=== PATIENT | female | born 1970 | race Caucasian/White ===

== ENCOUNTER 2016-10-18 05:04 | Inpatient (IN) | payer BC ==
[2016-09-21 11:38] VITALS: BMI 37.0
--- NOTE | 2016-09-21 12:11 | PAT Medication Instructions ---
Service Date Sep 21, 2016. Current Home Medication List Cholecalciferol (Vitamin D3), 1 TAB PO QAM Cyanocobalamin (Vitamin B12), 1 TAB PO QAM Gabapentin (Neurontin), 600 MG PO HS Levothyroxine Sodium (Levothyroxine Sodium), 1 TAB PO QAM Medroxyprogesterone Acetate (Depo-Provera), 1 DOSE INJ [id number] Naproxen (Naprosyn), 500 MG PO BID Tramadol (Ultram), 50 MG PO Q4H PRN for Pain Triamcinolone Acet (Triamcinolone Acetonide), 1 APPLN TOP BID PRN for RASH Medication Instructions For Your Scheduled Surgery - Continue as directed: Medroxyprogesterone Acetate (Depo-Provera), 1 DOSE INJ [id number] - Hold the following medications 10 days prior to surgery per surgeon's instructions: Naproxen (Naprosyn), 500 MG PO BID - Hold the following medications 24 hours prior to surgery: Triamcinolone Acet (Triamcinolone Acetonide), 1 APPLN TOP BID PRN for RASH - Hold the following medications the morning of surgery: Cholecalciferol (Vitamin D3), 1 TAB PO QAM Cyanocobalamin (Vitamin B12), 1 TAB PO QAM - Take the following medications the morning of surgery with a sip of water OTHERWISE NOTHING TO EAT OR DRINK AFTER MIDNIGHT: Levothyroxine Sodium (Levothyroxine Sodium), 1 TAB PO QAM Tramadol (Ultram), 50 MG PO Q4H PRN for Pain (may take if needed up to 4 hours prior to surgery) - Take the following medications as scheduled the night before surgery: Gabapentin (Neurontin), 600 MG PO HS Tramadol (Ultram), 50 MG PO Q4H PRN for Pain If you have any questions please call us at [phone] (Pepper Ingram PA-C) or [phone] or [phone]
[2016-09-21 12:41] LABS: BASO % 0.9 %; BASO ABS # 0.06 K/uL (0-0.2); COMPLETE YES; EOS % 5.2 %; HEMATOCRIT 41.6 % (37-47); LYMPH % 23.3 %; LYMPH ABS # 1.47 K/uL (1.2-3.4); MEAN CELL VOLUME 86.3 fL (80-100); MEAN CORPUSCULAR HEMOGLOBIN 28.2 pg (25-34); MEAN CORPUSCULAR HGB CONC 32.7 g/dl (32-36); MEAN PLATELET VOLUME 9.3 fL (7.4-10.4); MONO % 9.7 %; NEUT % 60.9 %; PLATELET COUNT 312 K/uL (130-400); RED BLOOD COUNT 4.82 M/uL (4.2-5.4); WHITE BLOOD COUNT 6.32 K/uL (4.8-10.8)
[2016-09-21 12:50] LABS: PARTIAL THROMBOPLASTIN RATIO 1.1; PROTHROMBIN TIME (PATIENT) 10.4 SECONDS (9.0-12.0)
[2016-09-21 13:44] LABS: BLOOD UREA NITROGEN 17 mg/dl (7-18); BUN/CREATININE RATIO 20.9 (10-20); CARBON DIOXIDE 25 mmol/L (21-32); CHLORIDE 107 mmol/L (98-107); CREATININE 0.82 mg/dl (0.60-1.20); GLUCOSE 87 mg/dl (70-99); SODIUM 142 mmol/L (136-145)
[2016-09-21 13:48] LABS: C-REACTIVE PROTEIN < 0.29 mg/dl (0-0.29)
--- NOTE | 2016-09-21 13:49 | DIAGNOSTIC IMAGING REPORT ---
CHEST PREADMISSION(PA/LAT) HISTORY: Preop. COMPARISON: None. FINDINGS: The lungs are clear. Cardiac silhouette is normal in size. No pleural effusions. No pneumothorax. IMPRESSION: No acute process. Electronically signed by: Power Gallagher M.D. 09/21/2016 1:47 PM
--- NOTE | 2016-10-13 22:52 | HISTORY & PHYSICAL EXAMINATION ---
DATE OF ADMISSION: 10/18/2016 CHIEF COMPLAINT: Right hip pain. HISTORY OF PRESENT ILLNESS: The patient is a 46-year-old female who works for [employer] but currently on medical leave due to multiple joint aches and pains. She has a history of parvovirus in the past back in December and started developing lot of aches and pains in her joints. Since then, her right hip has gotten significantly worse. She describes groin pain. She has taken multiple different medicines to try and manage this. She has been on gabapentin, tramadol, Naprosyn, all of which take a little edge off it and that is about it. She limps with every step. She limps more and more as the day goes on. She also has had some knee pain that has been bothering her for about the past 6 months. She has been seen by infectious disease doctors but really not much management as she has had this virus. Her walking tolerance is limited. Right hip pain is worse than the knee pain. PAST MEDICAL HISTORY: Significant for: 1. Thyroid enlargement, status post thyroidectomy and now on Synthroid. 2. Obesity with a BMI of 37. PAST SURGICAL HISTORY: Includes thyroid surgery. ALLERGIES: None. CURRENT MEDICINES: 1. Gabapentin 600 mg at bedtime. 2. Tramadol 50 mg every 4 hours. 3. Naproxen 500 mg twice a day. 4. Synthroid 88 mcg in the morning. 5. Depo-Provera 400 mg every 11 weeks. 6. Triamcinolone external cream for rash. 7. Vitamin B12. 8. Vitamin D3. SOCIAL HISTORY: A 46-year-old female patient, . She works at [employer] but currently on medical leave. REVIEW OF SYSTEMS: Negative for diabetes. Denies any chest pain, no shortness of breath. No history of DVT or PE. PHYSICAL EXAMINATION: GENERAL: Reveals a pleasant middle-aged female. She looks to be in reasonably good health. HEENT: Benign. NECK: Supple. No lymphadenopathy. LUNGS: Clear to auscultation. HEART: Regular rate and rhythm. ABDOMEN: Soft, nontender, nondistended. EXTREMITIES: Grossly neurovascularly intact except as follows: Examination of the right hip and leg reveals the patient walks with a slight bit of a limp. Leg lengths clinically appear equal. She does have quite a bit of stiffness and pain with hip motion, particularly internal rotation to neutral. External rotation to 25 degrees. Negative straight leg raise. Examination of her knees reveals slight valgus alignment. No significant knee effusion. Range of motion 0-125 plus. X-RAYS: X-rays of the right hip were reviewed. The patient has advanced right hip DJD. She has complete loss of her superior joint space. Cystic changes of the femoral head and acetabulum. X-rays of the knees were reviewed, showed some moderate knee DJD. Left side worse than the right. ASSESSMENT: A 46-year-old female with a history of parvovirus with multiple musculoskeletal aches and pains consistent with: 1. Advanced right hip degenerative joint disease. 2. Moderate bilateral knee degenerative joint disease. I do think her hip is the most severe and limiting problem at this point. PLAN: We talked about treatment. She would like to have her hip replaced. We are going to take her to the operating room and do right total hip replacement. The risks and benefits of this procedure were explained to the patient including but not limited to DVT, PE, , infection, neurologic injury, vascular injury, bleeding problem, pain, limited range of motion, stiffness, failure to relieve her symptoms, incomplete relief of symptoms, need for further surgery in the future, fracture, leg length inequality, nerve palsy, need for blood transfusion and need for revision surgery. The patient understands and desires to proceed. Informed consent was obtained. The patient did have a preoperative workup. Chest x-ray showed no acute disease. EKG is normal. We did some lab work and her sed rate and C-reactive protein are both normal, so I do not think there is any chance she has got a bacterial infection. We did talk about holding her Naprosyn 10 days preop. I will see her back 2 weeks postop.
[~2016-10-18] VITALS: Ht 160 cm; Wt 94.8 kg
[2016-10-18] VITALS (18 sets, daily range): BP systolic 91–168; BP diastolic 61–91; PULSE 55–84; TEMP 36.4–37.1; O2SAT 95–100; Ht 160 cm; Wt 94.8 kg
[~2016-10-18 05:04] MED LIST: CHOL1000 PO; CYAN100020 PO; DPPI400 INJ; GABA-113 PO; LEVO88TA3 PO; NAPR-1169 PO; TRAM-10 PO; TRMO115 TOP
[2016-10-18] MEDS ORDERED: CEFAZOLIN 2000 MG/60 ML D5W 60 ML IV SCH (06:00)
[2016-10-18] MEDS ORDERED: ACETAMINOPHEN 500 MG TAB PO SCH (06:00)
[2016-10-18] MEDS ORDERED: LACTATED RINGER'S 500 ML IV SCH (06:00)
[2016-10-18] MEDS ORDERED: METOCLOPRAMIDE HCL 10 MG TAB PO SCH (06:00)
[2016-10-18] MEDS ORDERED: TRANEXAMIC ACID INJ 1,000 MG in SODIUM CHLORIDE 0.9% 100ML 100 ML IV SCH (06:00)
[2016-10-18] MEDS ORDERED: FAMOTIDINE 20 MG TAB PO SCH (06:00)
[2016-10-18] MEDS ORDERED: GABAPENTIN 300 MG CAP PO SCH (06:00)
[2016-10-18] MEDS ORDERED: LACTATED RINGER'S 1000ML IV SCH (06:00)
[2016-10-18] MEDS ORDERED: LACTATED RINGER'S 1000ML 1,000 ML IV SCH (06:00)
[2016-10-18] MEDS ORDERED: SCOPOLAMINE 1.5 MG TDSY TD SCH (06:00)
[2016-10-18] MEDS ORDERED: MIDAZOLAM HCL 1 MG/ML 2ML VIAL ONE (06:26)
[2016-10-18] MEDS ORDERED: FENTANYL CITRATE INJ 50 MCG/1 ML 2 ML VIAL ONE (06:26)
[2016-10-18] MEDS ORDERED: BUPIVACAINE 0.5 % 5 MG/1 ML PF 10ML VIAL ONE (06:31)
[2016-10-18 06:37] LABS: PREG INTERNAL NEGATIVE QC NEG CLEAR BACKGROUND; PREG INTERNAL POSITIVE QC POS CONTROL LINE
--- NOTE | 2016-10-18 06:47 | History & Physical Bridge Note ---
H&P Re-Evaluation Bridge Note: I have examined the patient, reviewed the History & Physical and in the interval since the performance of the History & Physical I have noted the following changes of clinical significance: No changes noted
[2016-10-18] MEDS ORDERED: MoRPHine SULFATE PF 1 MG/ML 10 ML AMP/VIAL ONE (06:48)
[2016-10-18] MEDS ORDERED: LIDOCAINE HCL 2% 2 ML VIAL (20MG/ML) ONE (07:41)
[2016-10-18] MEDS ORDERED: PHENYLEPHRINE 100MCG/ML 5ML SYR ONE (07:41)
[2016-10-18] MEDS ORDERED: PROPOFOL IV EMULSION 10 MG/ML 20 ML VIAL IV ONE (07:41)
[2016-10-18] MEDS ORDERED: EpHEDrine SULFATE INJ 50 MG/ML AMP ONE (07:55)
[2016-10-18] MEDS ORDERED: NALOXONE HCL INJ 1 MG in SODIUM CHLORIDE 0.9% 1000ML 1,000 ML IV PRN (08:21)
[2016-10-18] MEDS ORDERED: SODIUM CHLORIDE 0.9% 1000ML 1,000 ML IV PRN (08:21)
[2016-10-18] MEDS ORDERED: LACTATED RINGER'S 1000ML 500 ML IV PRN (08:21)
[2016-10-18] MEDS ORDERED: NALOXONE HCL INJ 0.08 MG in SYRINGE 1.8 ML IV PRN (08:21)
[2016-10-18] MEDS ORDERED: MEPERIDINE HCL 25 MG/ML CARP IV PRN ×2 (08:30)
[2016-10-18] MEDS ORDERED: LABETALOL HCL IV 5 MG/ML 20ML IV PRN (08:30)
[2016-10-18] MEDS ORDERED: HYDROmorphone INJ 1 MG/ML SYR IV PRN (08:30)
[2016-10-18] MEDS ORDERED: KETOROLAC TROMETHAMINE 30 MG/ML VIAL IV. PRN (08:30)
[2016-10-18] MEDS ORDERED: FENTANYL CITRATE INJ 50 MCG/1 ML 2 ML VIAL IV PRN (08:30)
[2016-10-18] MEDS ORDERED: DiphenhydrAMINE HCL 50 MG/ML VIAL IV PRN ×2 (08:30)
[2016-10-18] MEDS ORDERED: EpHEDrine SULFATE INJ 50 MG/ML AMP IV PRN ×2 (08:30)
[2016-10-18] MEDS ORDERED: METOCLOPRAMIDE HCL INJ 20 MG in SODIUM CHLORIDE 0.9% 50ML 50 ML IV PRN (08:30)
[2016-10-18] MEDS ORDERED: MoRPHine SULFATE 2 MG/ML CARP IV PRN (08:30)
[2016-10-18] MEDS ORDERED: NALBUPHINE HCL INJ 10 MG/ML AMP IV PRN (08:30)
[2016-10-18] MEDS ORDERED: PROMETHAZINE HCL INJ 25 MG in SODIUM CHLORIDE 0.9% 50ML 50 ML IV PRN (08:30)
[2016-10-18] MEDS ORDERED: NO NARCOTICS OR SEDATIVES SCH (08:30)
[2016-10-18] MEDS ORDERED: MoRPHine SULFATE PF 1 MG/ML 10 ML AMP/VIAL EPI PRN (08:30)
[2016-10-18] MEDS ORDERED: ATROPINE SULFATE 0.1 MG/ML 5ML SYR IV PRN (08:30)
[2016-10-18] MEDS ORDERED: ONDANSETRON INJ 2 MG/ML 2 ML VIAL IV PRN ×3 (08:30→09:15)
[2016-10-18] MEDS ORDERED: NALOXONE HCL 0.4 MG/1 ML VIAL/CARP IV PRN (08:30)
[2016-10-18] MEDS ORDERED: BUPIVACAINE/EPINEPHRINE 0.5% MPF 1:200,000 30 ML VIAL INJ ONE (08:42)
[2016-10-18] MEDS ORDERED: BACITRACIN 50000 UNIT VIAL IR ONE (08:42)
--- NOTE | 2016-10-18 09:13 | [facility] Post Operative Brief Note ---
Immediate Operative Summary Operative Date Oct 18, 2016. Pre-Operative Diagnosis Right hip degenerative joint disease Post-Operative Diagnosis Right hip degenerative joint disease Procedure(s) Performed Right total hip arthroplasty Surgeon Dr. Domingo Parer Surgeon(s) Obie Nur PA-C Estimated Blood Loss 300CC Findings Right Hip DJD Fluids (cc crystalloids) 1200 cc Specimens A. Right femoral head Drains None Anesthesia Spinal Complication(s) None Disposition Recovery Room / PACU
[2016-10-18] MEDS ORDERED: SILVER SULFADIAZINE 1% CR 50 GM JAR EXT PRN (09:15)
[2016-10-18] MEDS ORDERED: ALUMINUM/MAGNESIUM/SIMETH (MAALOX MAX) 30 ML UDC PO PRN (09:15)
[2016-10-18] MEDS ORDERED: BISACODYL 10 MG SUPP PR PRN (09:15)
[2016-10-18] MEDS ORDERED: MAGNESIUM HYDROXIDE SUSP 30 ML UDC PO PRN (09:15)
[2016-10-18] MEDS ORDERED: TRIAMCINOLONE ACET 0.1% OINT 15 GM TUBE TOP PRN (09:15)
[2016-10-18] MEDS ORDERED: METOCLOPRAMIDE HCL INJ 5 MG/ML 2 ML VIAL IV PRN (09:15)
--- NOTE | 2016-10-18 09:59 | DIAGNOSTIC IMAGING REPORT ---
AP PELVIS, CROSSTABLE LATERAL RIGHT HIP History: Right total hip arthroplasty. Degenerative arthritis. Postop. FINDINGS: The patient is status post a right total hip arthroplasty. The hardware is intact. No fracture or dislocation. Skin betty are in place. IMPRESSION: Right total hip arthroplasty. No evidence for hardware complication Electronically signed by: Power Gallagher M.D. 10/18/2016 9:58 AM Dictated Date/Time: 10/18/2016 9:52 AM
--- NOTE | 2016-10-18 10:02 | OPERATIVE REPORT ---
DATE OF OPERATION: 10/18/2016 PREOPERATIVE DIAGNOSIS: Right hip degenerative joint disease. POSTOPERATIVE DIAGNOSIS: Same. PROCEDURE PERFORMED: Right uncemented ceramic on highly cross-linked polyethylene total hip arthroplasty. SURGEON: Chris Domingo M.D. LAB AIDE: Obie Nur PA-C. COMPLICATIONS: None. ESTIMATED BLOOD LOSS: 300 mL. FLUID REPLACEMENT: 1200 mL crystalloid fluid replacement. ANESTHESIA: Duramorph spinal. DRAINS: None. SPECIMENS: Right femoral head sent for pathology. OPERATIVE INDICATIONS: The patient is a 46-year-old female who has had a history of multiple joint aches and pains over the years. Over the past several years, she developed increased pain and discomfort right hip and groin area. X-rays revealed advanced right hip DJD. She failed conservative treatment. She actually did take some time off of her job due to her pain, discomfort and limitations. She elected to proceed with total hip arthroplasty. OPERATION AND FINDINGS: OPERATIVE FINDINGS: Operative findings revealed advanced right hip DJD. She had grade 4 [id number] disease of the femoral head and acetabulum. She had pretty significant joint effusion as well. Not much in the way of osteophytes. OPERATIVE IMPLANTS: Operative implants consisted of: 1. Biomet G7 size 50 mm acetabular shell. 2. An apex hole eliminator. 3. A 6.5 cancellous acetabular screws, 1 at 35 mm length and 1 at 20 mm in length. 4. Biomet vitamin E enriched highly cross-linked polyethylene liner with a 50 mm outer diameter, 32 mm inner diameter with a dowell placed very inferior and posterior. 5. DePuy size 12 small stature AML femoral stem. 6. A +5/32 mm ceramic articular ball. OPERATIVE PROCEDURE: The patient taken to the operating room, identified and placed on the operating table in supine position. All contact areas were appropriately padded. IV antibiotics were provided by the anesthesia team. A spinal anesthetic had been implemented in the holding area. Titus catheter was placed in sterile fashion. The patient was then placed in the left lateral decubitus position. An axillary roll was placed. Stlberg hip positioner was used for positioning. Right hip and leg were then prepped and draped in usual sterile fashion. A posterolateral approach to the right hip was then performed through a curvilinear incision centered over the greater trochanter. Sharp dissection was carried through the subcutaneous tissue down to the level of the IT band and gluteal fascia. The patient had a very large soft tissue envelope. She was not markedly obese but carried most of her weight around her hip area. The IT band and gluteal fascia were then incised longitudinally in line with skin incision. The underlying greater trochanteric bursa was excised. The piriformis and external rotators were tagged and taken off the posterior aspect of the femur. Great care was taken throughout the procedure to protect the sciatic nerve at all times. Posterior capsulotomy was then performed leaving a large flap for later repair. Hip was internally rotated and dislocated. Femoral neck osteotomy cut was made with the final cut 1 cm above the lesser trochanter. Femoral head was removed and sent for pathology. Femur was retracted anteriorly. Attention was then drawn to the acetabulum. The acetabular labrum was excised. The pulvinar fat was excised. Sequential reaming of the acetabulum was then performed beginning with a size 45 and progressing up to a 49. A 50 mm Biomet G7 acetabular shell was then placed in about 40 degrees of lateral opening and 20-25 degrees of anteversion. We did work hard to try and get this fairly flat as it was difficult due to her large soft tissue envelope. The acetabulum was then fixed with two 6.5 cancellous acetabular screws. A trial liner was placed. Attention was then drawn to the femur. The proximal femur was entered with a cookie cutter followed by canal finder and lateralizing reamer. Sequential reaming of the femur was then performed beginning with a size 9 and progressing to a 10. I then broached with a 10.5 broach. We spent quite a bit of time making sure I could get this down. I did not quite get enough cortical bite with the reamer, so we did ream up to an 11.5. I then broached with a 12 small broach. We got good metaphyseal fit. We had to place this down several times to get this down to the calcar. The hip was then trialed. The +5/32 mm articular ball seemed to recreate soft tissue tension appropriately. The hip was fully stable in full extension, external rotation, flexion to 90 degrees, internal rotation to about 60 degrees. I did decide to place a dowell very inferior and posterior to maximize stability in flexion. Leg lengths appeared appropriate. Attention was then drawn toward placing the permanent components. All trial components were removed. An apex hole eliminator was placed. A highly cross-linked vitamin E enriched highly cross-linked polyethylene liner was placed with the dowell placed inferior and posterior. A 12 small stature AML femoral stem was placed. I did ream partway down the canal with a 12 reamer. The +5/32 mm ceramic articular ball was placed. Hip was once again located. It was found to be fully stable in full extension, external rotation and flexion to 90 degrees, internal rotation to 60+ degrees. Attention was then drawn toward closing. The wound was irrigated with copious amounts of pulsatile lavage solution. I did inject locally with 60 mL of 0.5% Marcaine with epinephrine. The posterior capsule and external rotators were repaired through drill holes in the posterior trochanter with #2 Ti-Cron suture. The IT band and gluteal fascia were then closed with #1 PDS suture in running fashion. The subcutaneous tissues were then closed with 2 layers with the deep layer #2 Vicryl suture with some enlarged needle stitches and then the more superficial tissues with 2-0 Dexon suture in a buried interrupted fashion. The skin was closed with skin betty. Leg was cleaned and dried and a sterile dressing with Xeroform, 4 x 4, sterile ABD pad and foam tape was applied. The patient was then transferred to the recovery room in stable condition. The patient tolerated the procedure well with no complications. All needle and sponge counts were correct at the end of the operation. I attest to the content of the Intraoperative Record and any orders documented therein. Any exceptio ns are noted below.
--- NOTE | 2016-10-18 10:40 | Anesthesiology Progress Note ---
Anesthesia Post Op Note Date & Time Oct 18, 2016 at 10:40 Vital Signs Pain Intensity: 0.0 Vital Signs Past 12 Hours Date Time Temp Pulse Resp B/P Pulse Ox O2 Delivery O2 Flow Rate FiO2 10/18/16 10:10 36.4 84 16 112/75 99 Nasal Cannula 2.0 10/18/16 10:10 99 Nasal Cannula 2.0 10/18/16 10:10 99 Nasal Cannula 2.0 10/18/16 09:54 74 19 99 10/18/16 09:54 74 19 10/18/16 09:53 76 18 106/75 99 10/18/16 09:53 77 18 10/18/16 09:48 78 20 108/83 98 10/18/16 09:48 80 20 10/18/16 09:46 36.4 10/18/16 09:43 89 17 10/18/16 09:43 88 17 120/88 100 10/18/16 09:41 97/61 10/18/16 09:38 90 17 99 10/18/16 09:38 90 17 10/18/16 09:37 95 22 100 10/18/16 09:37 95 22 10/18/16 09:34 116/79 10/18/16 09:32 86 19 10/18/16 09:32 86 19 99 10/18/16 09:28 106/75 10/18/16 09:27 91 17 10/18/16 09:27 91 17 99 10/18/16 09:23 118/79 10/18/16 09:22 99 23 98 10/18/16 09:22 99 23 10/18/16 09:21 110/79 10/18/16 09:17 99 19 98 10/18/16 09:17 100 19 10/18/16 09:17 36.9 98 20 124/64 98 Nasal Cannula 2 10/18/16 05:53 37.1 78 18 168/91 Room Air 100 Notes Mental Status: alert / awake / arousable, participated in evaluation Pt Amnestic to Procedure: Yes Nausea / Vomiting: adequately controlled Pain: adequately controlled Airway Patency, RR, SpO2: stable & adequate BP & HR: stable & adequate Hydration State: stable & adequate Neuraxial Anesthesia: was administered, sensory block is resolving Anesthetic Complications: no major complications apparent
[2016-10-18] MEDS: D5W AND 1/2NSS + 20MEQ KCL 1,000 ML IV SCH ×2 (11:04→18:31)
[2016-10-18] MEDS: FERROUS GLUCONATE 324 MG TAB PO SCH ×2 (11:51→17:13)
[2016-10-18] MEDS: ACETAMINOPHEN 500 MG TAB PO SCH ×2 (13:42→21:11)
--- NOTE | 2016-10-18 14:32 | PROGRESS NOTE ---
DATE: 10/18/2016 SUBJECTIVE: A 46-year-old white female postop from a right total hip replacement. She is doing pretty well. Really not having any pain. She has been nauseated and thrown up a couple times. Feeling okay currently. No chest pain or shortness of breath. Not feeling dizzy or lightheaded. OBJECTIVE: VITAL SIGNS: Temperature is 36.4. Vital signs stable. PHYSICAL EXAMINATION: GENERAL: Reveals a healthy pleasant, middle-aged female. She is sitting up in bed and looks pretty comfortable. LUNGS: Clear to auscultation. HEART: Has a regular rate and rhythm. ABDOMEN: Soft, nontender, nondistended. EXTREMITIES: Grossly neurovascularly intact except as follows: Examination of the right lower extremity reveals the leg to be well aligned. Dressing is clean, dry and intact. Thigh is soft and supple. She can dorsiflex and plantarflex her foot appropriately. She is neurologically intact. X-RAYS: X-rays of the right hip recovery room reviewed. It shows a right uncemented total hip arthroplasty. Components looked to be in good position. No signs of problems. ASSESSMENT: A 46-year-old white female postop from a right total hip replacement, doing well. She has been nauseated, but this seems to be under better control now. Her hip is located. She is neurologically intact. Her pain is controlled. PLAN: 1. DVT prophylaxis including thigh-high TEDs, SCDs, and aspirin twice a day. 2. PT/OT. Weightbearing as tolerated. Right total hip protocol. 3. Pain control. Doing well with current pain regimen. We will continue to control her nausea, which is likely related to morphine in the spinal. 4. IV antibiotics x24 hours. 5. Nausea. She is getting antiemetics and this will clear with time. 6. Disposition: She is hoping to be discharge to home with likely some home health once stable. JOOND
[2016-10-18] MEDS: CHECK SCOPOLAMINE PATCH PLACEMENT SCH ×2 (14:50→23:45)
[2016-10-18] MEDS ORDERED: TRANEXAMIC ACID INJ 1,000 MG in SODIUM CHLORIDE 0.9% 100ML 100 ML IV ONE (15:00)
[2016-10-18] MEDS: CEFAZOLIN IV 2,000 MG in DEXTROSE 5% 50ML 50 ML IV SCH ×2 (15:28→23:47)
[2016-10-18] MEDS: DOCUSATE SODIUM 100 MG CAP PO SCH (21:10)
[2016-10-18] MEDS: GABAPENTIN 600 MG TAB PO SCH (21:11)
[2016-10-18] MEDS: ASPIRIN 325 MG ECTAB PO SCH (21:11)
[2016-10-19] VITALS (9 sets, daily range): BP systolic 91–146; BP diastolic 56–88; PULSE 56–84; TEMP 36.5–37; O2SAT 98–100
[2016-10-19] MEDS ORDERED: DC INTRASPINAL MORPHINE SCH (01:00)
[2016-10-19] MEDS ORDERED: MoRPHine SULFATE 2 MG/ML CARP IV PRN (01:01)
[2016-10-19] MEDS ORDERED: ZOLPIDEM TARTRATE 5 MG TAB PO PRN (01:01)
[2016-10-19] MEDS ORDERED: DiphenhydrAMINE HCL 50 MG/ML VIAL IV PRN (01:01)
[2016-10-19] MEDS ORDERED: OXYCODONE HCL IR 5 MG TAB (IMMEDIATE RELEASE) PO PRN (01:01)
[2016-10-19] MEDS: D5W AND 1/2NSS + 20MEQ KCL 1,000 ML IV SCH (02:04)
[2016-10-19] MEDS: KETOROLAC TROMETHAMINE 30 MG/ML VIAL IV. SCH ×4 (02:04→20:27)
[2016-10-19] MEDS: LEVOTHYROXINE 88 MCG TAB PO SCH (05:41)
[2016-10-19] MEDS: ACETAMINOPHEN 500 MG TAB PO SCH ×3 (05:42→21:55)
[2016-10-19 05:49] LABS: BASO % 0.5 %; BASO ABS # 0.03 K/uL (0-0.2); COMPLETE YES; EOS % 4.4 %; HEMATOCRIT 32.2 % (37-47); IG% 0.2 %; LYMPH % 13.1 %; LYMPH ABS # 0.83 K/uL (1.2-3.4); MEAN CORPUSCULAR HEMOGLOBIN 28.1 pg (25-34); MEAN PLATELET VOLUME 9.3 fL (7.4-10.4); MONO % 11.5 %; NEUT % 70.3 %; PLATELET COUNT 205 K/uL (130-400); RED BLOOD COUNT 3.66 M/uL (4.2-5.4); WHITE BLOOD COUNT 6.36 K/uL (4.8-10.8)
[2016-10-19 06:15] LABS: BUN/CREATININE RATIO 11.8 (10-20); CALCIUM 7.8 mg/dl (8.5-10.1); CREATININE 0.64 mg/dl (0.60-1.20); POTASSIUM 4.4 mmol/L (3.5-5.1)
[2016-10-19] MEDS: CHECK SCOPOLAMINE PATCH PLACEMENT SCH ×3 (08:00→21:55)
[2016-10-19] MEDS: TAPENTADOL ER 50 MG TABCR PO SCH ×2 (08:47→20:30)
[2016-10-19] MEDS: ASPIRIN 325 MG ECTAB PO SCH ×2 (08:49→20:30)
[2016-10-19] MEDS: DOCUSATE SODIUM 100 MG CAP PO SCH ×2 (08:49→20:30)
[2016-10-19] MEDS: CHOLECALCIFEROL 400 INTER.UNIT TAB PO SCH (08:49)
[2016-10-19] MEDS: PANTOprazole SOD 40 MG TAB PO SCH (08:49)
[2016-10-19] MEDS: FERROUS GLUCONATE 324 MG TAB PO SCH ×3 (08:49→17:59)
[2016-10-19] MEDS: MULTIVITAMIN TAB PO SCH (08:49)
[2016-10-19] MEDS: CYANOCOBALAMIN 500 MCG TAB (VIT B-12) PO SCH (08:50)
[2016-10-19] MEDS ORDERED: OXYC-57 PO (11:47)
[2016-10-19] MEDS ORDERED: FRRG PO (11:47)
[2016-10-19] MEDS ORDERED: ASPEC325 PO (11:47)
--- NOTE | 2016-10-19 11:50 | Discharge Instructions ---
Discharge Instructions Admission Reason for Admission: Right Hip Osteoarthritis Discharge Discharge Diagnosis / Problem: Right Hip Replacement Discharge Goals Goal(s): Decrease discomfort, Improve function, Increase independence, Improve disease control, Therapeutic intervention Activity Recommendations Activity Limitations: per Instructions/Follow-up section (Total Hip Precautions ) Weightbearing Status: Right weightbearing . Instructions / Follow-Up Instructions / Follow-Up ACTIVITY RECOMMENDATIONS: Physical Therapy: * Aggressive physical therapy is not usually needed. You will learn to take care of yourself safely and walk. * Follow the "Hip Precautions Instructions." * In some cases, the social work manager at the hospital will arrange to have a therapist come to your house for the first couple of weeks to help you learn these skills. * You need to practice on your own or with the help of a family member as needed. * When you learn these skills, most of the therapy can be done on your own. Home Exercise: * You were shown a series of exercises in the hospital. Do these exercises three to four times each day including the exercises you were shown in physical therapy. Walking: * Get up and walk several times each day. For the first four weeks, try not to stand or walk for more than one hour at a time. If you do stand or walk for more than one hour, you will not hurt anything, but your leg will likely swell. * As you feel comfortable, you may change from the walker or crutches to a cane and then to independent walking. MEDICATIONS: New Medicine: * You will likely be taking one or more of these medicines: 1. Percocet - Take, as directed, when you need it, every four to six hours to control your pain. 2. Iron Sulfate - Take three times each day for the month after surgery to help you replace the blood lost during surgery. 3. Aspirin - Thins your blood to lessen the chance of forming a blood clot. * The most common side effects of pain medicine and iron are nausea and constipation. If nausea or constipation is too much of a problem or if you have any questions about your new medicines or doses, call [facility] at . We will try to help you manage these issues. VERY IMPORTANT TO READ AND REVIEW" Pain: * The immediate post-operative period after hip replacement surgery is often quite painful. * You are given a prescription for pain medicine. You should take it, as directed, when you need it, especially before physical therapy and before going to bed. Pain that interferes with sleep is very common and can last several months. * You will likely need pain medicine for the first two to four weeks. It will not stop all of the pain. The pain will lessen and as you feel better, you may change to milder pain medicine such as Tylenol. * The most common side effects of pain medicine are nausea and constipation, so don't take more than you need. SPECIAL CARE INSTRUCTIONS: TEDs/Elastic Stockings: * The white elastic stockings help limit swelling and prevent blood clots from forming in your legs. The more you wear them, the more they work. * Wear them for six weeks. Prevention of Infection: * Take antibiotics one hour before any dental cleaning, dental work, urological procedure, gastrointestinal procedure or any invasive surgery in order to prevent your new joint from getting infected. * You may get the antibiotics from the doctor performing the procedure or you may call our office at before and we will call in a prescription to the pharmacy of your choice. Things to Watch For: * Drainage from the incision site that occurs more than one week after your surgery. * Severely increased leg pain or swelling. * Increased redness at the incision site. * Fever above 102 degrees Fahrenheit. * Unusual chest pain or shortness of breath. * Unusual pain or burning with urination. Call [facility] at with any of the above problems or if you have any questions about your medicines or recovery. FOLLOW UP VISIT: Make an appointment to see your doctor for approximately two weeks after surgery for a progress check and staple removal by calling the office at . Current Hospital Diet Patient's current hospital diet: Regular Diet Discharge Diet Recommended Diet: Regular Diet Procedures Procedures Performed: Right total hip arthroplasty Pending Studies Studies pending at discharge: no Medical Emergencies . Who to Call and When: Medical Emergencies: If at any time you feel your situation is an emergency, please call [phone] immediately. . Non-Emergent Contact Non-Emergency issues call your: Surgeon . "Provider Documentation" section prepared by Chris Domingo. VTE Core Measure Inpt VTE Proph given/why not?: Other Anticoagulation, T.E.D. Stockings, SCD's
--- NOTE | 2016-10-19 12:12 | PROGRESS NOTE ---
DATE: 10/19/2016 SUBJECTIVE: A 46-year-old white female postop day 1 from a right total hip replacement. She is doing pretty well. Pain is controlled. Therapy went pretty well. Denies any chest pain or shortness of breath. Not feeling dizzy or lightheaded. OBJECTIVE: VITAL SIGNS: Temperature is 36.8. Vital signs stable. PHYSICAL EXAMINATION: GENERAL: Reveals a healthy, pleasant, middle-aged female. She is sitting up in her bedside chair and looks comfortable. LUNGS: Clear to auscultation. HEART: Has a regular rate and rhythm. ABDOMEN: Soft, nontender, nondistended. EXTREMITIES: Grossly neurovascularly intact except as follows: Examination of the right lower extremity reveals the dressing to be clean, dry and intact. Leg is well aligned. Hip is located. She is neurologically intact. LABORATORIES: Hemoglobin 10.3. Hematocrit 32.2. Electrolytes are stable. ASSESSMENT: A 46-year-old white female postoperative day 1 from a right total hip replacement, doing well. Pain is controlled. PLAN: 1. DVT prophylaxis including thigh-high TEDs, SCDs, and aspirin twice a day. 2. PT/OT. Weightbearing as tolerated. Right total hip protocol. 3. Pain control, doing pretty well with current pain regimen. 4. Disposition: She is planning to be discharged home with some home health once adequately recovered.
--- NOTE | 2016-10-19 13:55 | Anesthesiology Progress Note ---
Anesthesia Post Op Note Date & Time Oct 19, 2016 at 13:54 Vital Signs Pain Intensity: 2.0 Vital Signs Past 12 Hours Date Time Temp Pulse Resp B/P Pulse Ox O2 Delivery O2 Flow Rate FiO2 10/19/16 11:58 36.6 72 18 109/76 100 Room Air 10/19/16 08:21 100 Room Air 10/19/16 08:00 36.8 56 16 146/82 100 Room Air 10/19/16 07:30 Room Air 10/19/16 06:20 67 133/82 10/19/16 03:05 36.5 58 16 91/56 100 Nasal Cannula 2.0 Notes Mental Status: alert / awake / arousable, participated in evaluation Pt Amnestic to Procedure: Yes Nausea / Vomiting: adequately controlled Pain: adequately controlled Airway Patency, RR, SpO2: stable & adequate BP & HR: stable & adequate Hydration State: stable & adequate Neuraxial Anesthesia: sensory block resolved Anesthetic Complications: no major complications apparent Anesthetic Complications: PONV but controlled at this time. Denies other complaints.
[2016-10-19] MEDS: GABAPENTIN 600 MG TAB PO SCH (20:30)
[2016-10-20] MEDS: KETOROLAC TROMETHAMINE 30 MG/ML VIAL IV. SCH ×2 (01:40→08:29)
[2016-10-20] MEDS: LEVOTHYROXINE 88 MCG TAB PO SCH (06:01)
[2016-10-20] MEDS: ACETAMINOPHEN 500 MG TAB PO SCH (06:01)
[2016-10-20 06:49] VITALS: BP 141/89; PULSE 80; TEMP 36.4; O2SAT 99
--- NOTE | 2016-10-20 07:30 | PROGRESS NOTE ---
DATE: 10/20/2016 SUBJECTIVE: A 46-year-old female postop day 2 from right total hip replacement. She just says she is a bit sore. Pain is very well controlled. No chest pain or shortness of breath. Not feeling dizzy or lightheaded. OBJECTIVE: VITAL SIGNS: Temperature 36.4. Vital signs stable. PHYSICAL EXAMINATION: GENERAL: Reveals a healthy, pleasant middle-aged female. She is sitting up in her bedside chair and looks comfortable. LUNGS: Clear to auscultation. HEART: Has a regular rate and rhythm. ABDOMEN: Soft, nontender, nondistended. EXTREMITIES: Grossly neurovascularly intact except as follows: Examination of the right hip and leg reveals the dressing to be clean, dry and intact. Hip is located. She is neurologically intact. ASSESSMENT: A 46-year-old female postop day 2 from a right total hip replacement, doing pretty well. Pain is controlled. PLAN: 1. DVT prophylaxis including thigh-high TEDs, SCDs, and aspirin twice a day. 2. PT/OT. Weightbearing as tolerated. Right total hip protocol. 3. Pain control. Doing well with current pain regimen. 4. Disposition: Plan to discharge to home with some home health after therapy.
[2016-10-20] MEDS: CHECK SCOPOLAMINE PATCH PLACEMENT SCH (08:28)
[2016-10-20] MEDS: ASPIRIN 325 MG ECTAB PO SCH (08:29)
[2016-10-20] MEDS: PANTOprazole SOD 40 MG TAB PO SCH (08:30)
[2016-10-20] MEDS: DOCUSATE SODIUM 100 MG CAP PO SCH (08:30)
[2016-10-20] MEDS: CYANOCOBALAMIN 500 MCG TAB (VIT B-12) PO SCH (08:30)
[2016-10-20] MEDS: CHOLECALCIFEROL 400 INTER.UNIT TAB PO SCH (08:31)
[2016-10-20] MEDS: FERROUS GLUCONATE 324 MG TAB PO SCH (08:32)
[2016-10-20] MEDS: MULTIVITAMIN TAB PO SCH (08:32)
[2016-10-20] MEDS: TAPENTADOL ER 50 MG TABCR PO SCH (08:35)
[2016-10-20 10:28] VITALS: BP 141/89; PULSE 80; TEMP 36.4; O2SAT 99
--- NOTE | 2016-10-25 14:30 | DISCHARGE SUMMARY ---
ADMITTING PHYSICIAN AND SURGEON: Dr. Domingo. ADMITTING DIAGNOSIS: Right hip degenerative joint disease. SURGERY PERFORMED: Right total hip arthroplasty. SECONDARY DIAGNOSES: Thyroid enlargement, obesity. HISTORY AND PHYSICAL EXAMINATION: Well documented in the patient's chart. HOSPITAL COURSE: The patient was admitted on 10/18/2016 underwent total hip arthroplasty, tolerated the procedure well. There were no complications. She was transferred to the PACU postoperatively and later to the orthopedic floor for further care. She was given Ancef for antibiotic prophylaxis, FARIDA stockings, SCDs and aspirin for DVT prophylaxis. Hemoglobin, hematocrit and vital signs were monitored during her hospital stay and remained stable. She developed some mild postoperative anemia, did not require any blood transfusions. There were no complications. By postoperative day 2, she was tolerating a general diet. Pain was controlled with oral pain medicine. She was participating in physical therapy and had no signs or symptoms of deep vein thrombosis. On postop day 2, she was discharged home in good condition, set up with home health services. She was given printed discharge instructions including prescriptions for aspirin 325 mg b.i.d., iron supplement, and Percocet. Continue her home medications and continue physical therapy, weightbearing as tolerated and FARIDA stockings, total hip precautions and follow up in 10-12 days or sooner if there are problems or concerns.
== END 2016-10-20 11:35 | disposition home health service (06) | DRG 470 ==
LOC: ENRESERVDT → ENRESERVTM → C.ACU 05:04 → C.3E 08:43
PROVIDERS: ADMIT Orthopaedic Surgery Sports Medicine; ATTEND Orthopaedic Surgery Sports Medicine
PROC: 0SR904A Replacement of Right Hip Joint with Ceramic on Polyethylene Synthetic Substitute, Uncemented, Open Approach (ICD-10-PCS; principal; 2016-10-18 07:00)
DX: M16.11 Unilateral primary osteoarthritis, right hip (principal); E66.9 Obesity, unspecified; Z68.37 Body mass index [BMI] 37.0-37.9, adult; M17.0 Bilateral primary osteoarthritis of knee; M25.451 Effusion, right hip; R20.0 Anesthesia of skin; E03.9 Hypothyroidism, unspecified; R11.2 Nausea with vomiting, unspecified; Z79.1 Long term (current) use of non-steroidal anti-inflammatories (NSAID); Z79.891 Long term (current) use of opiate analgesic; Z79.899 Other long term (current) drug therapy

== ENCOUNTER → 2018-01-04 | Outpatient (CLI) | payer OTHER ==
[~2018-01-04] MED LIST changes: +ASPEC325 PO; +FRRG PO
== END | disposition home or self-care (01) ==
LOC: C.LAB1850 13:51
PROVIDERS: ATTEND Family Medicine
DX: E03.9 Hypothyroidism, unspecified (principal)

== ENCOUNTER 2019-10-29 04:58 | Observation (INO) ==
--- NOTE | 2019-10-14 16:49 | PAT Medication Instructions ---
Medication Instructions Date of Service October 14, 2019 Home Medications Medication Instructions Recorded meloxicam 15 mg tablet 15 mg PO QAM #30 tab 08/01/19 tramadol 50 mg tablet 50 mg PO q6h PRN #30 tab 09/09/19 tramadol 50 mg tablet 50 mg PO q6h PRN #30 tab 09/24/19 cholecalciferol (vitamin D3) 1,000 unit PO QAM cyanocobalamin (vitamin B-12) 1,000 mcg PO QAM levothyroxine 88 mcg PO QAM meloxicam 15 mg tablet 15 mg PO QAM tramadol 50 mg tablet 50 mg PO q6h PRN acetaminophen [Tylenol] 325 mg PO QID PRN diphenhydramine-acetaminophen [Tylenol PM Extra Strength] 1 tab PO HS PRN ASK your surgeon for instructions meloxicam 15 mg tablet 15 mg PO QAM DO NOT take the morning of surgery cholecalciferol (vitamin D3) 1,000 unit PO QAM cyanocobalamin (vitamin B-12) 1,000 mcg PO QAM Take morning of surgery With a small sip of water, OTHERWISE NOTHING TO EAT OR DRINK AFTER MIDNIGHT: levothyroxine 88 mcg PO QAM tramadol 50 mg tablet 50 mg PO q6h PRN (if needed, may be taken up to four hours before surgery) acetaminophen [Tylenol] 325 mg PO QID PRN (if needed, may be taken up to four hours before surgery) Take evening before surgery tramadol 50 mg tablet 50 mg PO q6h PRN (if needed) acetaminophen [Tylenol] 325 mg PO QID PRN (if needed) diphenhydramine-acetaminophen [Tylenol PM Extra Strength] 1 tab PO HS PRN (if needed) Other Notes If you have any questions please call us at [phone] or [phone] or [phone] or [phone]
--- NOTE | 2019-10-15 08:26 | Anesthesiology Consultation ---
Date of Service October 15, 2019 Assessment & Plan (1) Encounter for pre-operative examination: Chart Review Chart Review: Acceptable Risk for Surgery and Patient seen in Pre Admission Testing Teaching & Discussion Instructed NPO after midnight before surgery, except medications with 15 cc of water. Medication instructions provided according to the PAT guidelines. History Surgery Operation Date: 10/29/19 08:50 Proposed Procedures p Left Total Hip Replacement - Chris Domingo MD Height/Weight Height: 5 ft 3 in Weight: 86.7 kg Allergies Allergy/AdvReac Type Severity Reaction Status Date / Time amoxicillin Allergy Intermediate RASH,FLUSHI Verified 10/11/19 08:59 NG hydrocodone AdvReac [place] Verified 10/11/19 08:59 Medications Home Medications Medication Instructions Recorded Confirmed Last Taken cholecalciferol (vitamin D3) 1,000 unit PO QAM 09/16/18 10/11/19 07/11/19 06:45 [Vitamin D3] cyanocobalamin (vitamin B-12) 1,000 mcg PO QAM 09/16/18 10/11/19 07/11/19 06:45 [Vitamin B-12] levothyroxine 88 mcg PO QAM 09/16/18 10/11/19 07/11/19 06:45 meloxicam 15 mg tablet 15 mg PO QAM #30 tab 08/01/19 10/11/19 Unknown tramadol 50 mg tablet 50 mg PO q6h PRN #30 tab 09/09/19 10/11/19 Unknown tramadol 50 mg tablet 50 mg PO q6h PRN #30 tab 09/24/19 10/11/19 Unknown acetaminophen [Tylenol] 325 mg PO QID PRN 10/11/19 10/11/19 Unknown diphenhydramine-acetaminophen 1 tab PO HS PRN 10/11/19 10/11/19 Unknown [Tylenol PM Extra Strength] Past Medical History Medical History Chronic back pain Hypothyroidism Kidney stones Osteoarthritis Parvovirus infection NOVEMBER 2014 Exercise / Class Metabolic Activity II 4-5 Yardwork/Stairs/Walk up hill (Currently limited by hip pain but denies any CP or SOB with 1 FOS, does daily) Past Family History Family History Mother Post-operative nausea and vomiting Past Surgical History Surgical History History of esophagogastroduodenoscopy (EGD) History of hip replacement RIGHT History of thyroidectomy, subtotal R/T GOITERS History of tonsillectomy Nausea and vomiting after administration of anesthetic agent SEVERE Past Anesthesia History No Hx of Anesthesia Complications (other than PONV) and No Family Hx of Anesthesia Complications (Mother PONV) PONV EVEN WITH SAB + SEDATION (NOTED IN ANESTHESIA PROGRESS NOTE). History of PONV History of PONV (SEVERE, not relieved with pre-medication) and Hx of Motion Sickness Social History Smoking Status: Never smoker Do You Dip or Chew Tobacco: No Hx Alcohol Use: Yes Alcohol type: wine alcohol intake frequency: holidays/special occasions only Hx Substance Use: No substance use type: does not use Review of Systems Pt denies any recent chest pain, shortness of breath, palpitations, cough, fever or URI. Physical Exam Vital Signs BP: 142/87 (pt says BP usually elevated in medical settings but PCP has never intended to initiate antihypertensives) P: 67bpm SPO2: 100% RA T: 98.5 F R: 16 ENMT Mouth: no dental restorations, no chipped teeth and no loose teeth Thyromental Distance: > or= 3.5 Finger Breadths (4) Mallampati Class: II Neck normal visual inspection; neck extension not limited Respiratory normal respiratory effort Auscultation: lungs clear to auscultation bilaterally Cardiovascular Rate/Rhythm: regular rate and regular rhythm Heart Sounds: no murmur Testing Laboratory Results 10/15/19 08:19 10/15/19 08:19 PT 10.1 Seconds (9.0-12.0) 10/15/19 08:19 INR 1.0 (0.9-1.1) 10/15/19 08:19 APTT 26.3 Seconds (21.0-31.0) 10/15/19 08:19 Blood Type A Positive 10/15/19 08:19 Antibody Screen NEGATIVE 10/15/19 08:19 Electrocardiogram Date: 09/25/19 Findings: + NSR @ (67bpm) Mild nonspecific ST changes.
--- NOTE | 2019-10-15 09:02 | XRay Report ---
XR chest Pre-admission PA/Lat HISTORY: 49 years-old Female pat preoperative exam. No acute chest complaints COMPARISON: Chest radiograph 09/21/2016 TECHNIQUE: PA and lateral views of the chest FINDINGS: Cardiomediastinal and hilar silhouettes are within normal limits. No pneumothorax, pleural effusion, focal airspace consolidation or overt pulmonary edema. Bones of the chest appear grossly intact. Unch anged remote lower thoracic compression deformity. Mild degenerative changes of the shoulders and spi ne. IMPRESSION: No acute process. ACT 112: Negative or not required by law. The above report was generated using voice recognition software. It may contain grammatical, syntax o r spelling errors. Electronically signed by: Juventino Bean M.D. 10/15/2019 9:01 AM
[2019-10-15 10:22] LABS: Basophils # (auto) 0.03 K/uL (0-0.2); Basophils % (auto) 0.4 %; Eosinophils # (auto) 0.26 K/uL (0-0.5); Eosinophils % (auto) 3.2 %; Hematocrit (blood only) 40.6 % (37-47); Immature Granulocytes # (auto) 0.01 K/uL (0.00-0.02); Immature Granulocytes % (auto) 0.1 %; Lymphocytes # (auto) 0.95 K/uL (1.2-3.4); Lymphocytes % (auto) 11.8 %; Mean Corpuscular Volume 90.6 fL (80-100); Mean Platelet Volume 9.8 fL (7.4-10.4); Monocytes # (auto) 0.64 K/uL (0.11-0.59); Neutrophils # (auto) 6.13 K/uL (1.4-6.5); Neutrophils % (auto) 76.5 %; Platelet Count 315 K/uL (130-400); RDW Coefficient of Variation 12.9 % (11.5-14.5); RDW Standard Deviation 42.7 fL (36.4-46.3); Red Blood Count 4.48 M/uL (4.2-5.4); White Blood Count 8.02 K/uL (4.8-10.8)
[2019-10-15 10:30] LABS: BUN Creatinine Ratio 23.1 (10-20); Blood Urea Nitrogen 16 mg/dl (7-18); Carbon Dioxide 26 mmol/L (21-32); Chloride 109 mmol/L (98-107); Creatinine Clr Calc Pharmacy 102.2 ml/min; Est GFR (African American) 117.4; Est GFR (Non-African American) 101.3; Glucose 83 mg/dl (70-99); Potassium 3.7 mmol/L (3.5-5.1); Sodium 140 mmol/L (136-145)
[2019-10-15 10:31] LABS: C Reactive Protein < 0.29 mg/dl (0-0.29)
[2019-10-15 10:37] LABS: Partial Thromboplastin Time 26.3 Seconds (21.0-31.0); Prothrombin Time 10.1 Seconds (9.0-12.0)
--- NOTE | 2019-10-25 23:47 | History and Physical Report ---
DATE OF ADMISSION: 10/29/2019 CHIEF COMPLAINT: Left hip pain. HISTORY OF PRESENT ILLNESS: A 49-year-old white female who is well known to me from a previous right hip replacement done in September 2016. She is now 3 years out from surgery and has done pretty well in her right hip. Over the past couple of years and particularly over the last 6 months, she has developed increased pain and discomfort in her left hip, groin, and thigh area. She has been treated by my partner, Dr. Aguilar, with various modalities including medicines and injections. She also has some chronic back problems for which she sees Dr. Welch. They are managing this conservatively with epidural steroid injections. She did have an intraarticular hip joint which injection did help for several months. She has this pain with walking. She has difficulty putting her shoes and socks on. She has a limited walking tolerance. She would like to proceed with left hip replacement. PAST MEDICAL HISTORY: 1. Hypothyroidism. 2. Chronic back pain and sciatica. 3. Kidney stones. 4. Obesity with a BMI of 35. ALLERGIES: None. CURRENT MEDICINES: Include, 1. Vitamin B12. 2. Vitamin D3. 3. Synthroid 88 mcg a day. SOCIAL HISTORY: Significant for a 49-year-old white female. Lives in [facility]. She works at [employer]. Does not smoke. FAMILY HISTORY: Noncontributory. REVIEW OF SYSTEMS: Negative for diabetes, neurologic problems, vascular problems or bleeding disorders. She denies any chest pain or shortness of breath. No history of DVT or PE. No known bleeding problems. PHYSICAL EXAMINATION: GENERAL: Shows a pleasant, middle-aged female. Looks to be in reasonably good health. HEENT: Benign. NECK: Supple with no lymphadenopathy. LUNGS: Clear to auscultation. HEART: Has a regular rate and rhythm. ABDOMEN: Soft, nontender, nondistended. EXTREMITIES: Grossly neurovascularly intact except as follows: Examination of the left hip and leg reveals the patient walks with a little bit of a limp. Leg lengths clinically appear pretty equal. She does have pain with hip motion. She can internally rotate to neutral, which causes pain. Hip is pretty stiff as well. External rotation to 20 degrees. Negative straight leg raise. She is neurologically intact. Examination of the left knee reveals just a small knee effusion. She has got valgus alignment to her knee. Range of motion 0-125. No instability. X-RAYS: X-rays of the left hip reveal advanced hip DJD. She has got complete loss of her superior joint space. She has got flattening of the femoral head and cystic changes which has progressed markedly since her films a year ago in November. Review of her spine films show some significant degenerative spondylosis of L4 on L5 and L5 on S1. She has got a little bit of spondylolisthesis on L3-L4. A little degenerative scoliosis as well. X-rays of the knee reveal fairly advanced lateral compartment DJD of the knee. ASSESSMENT: A 49-year-old white female 3 years out from right hip replacement with left hip and leg pain consistent with, 1. Advanced left hip degenerative joint disease. 2. Left knee degenerative joint disease. 3. Lumbar spondylosis and spinal stenosis and degenerative spondylolisthesis. This patient has multiple sources of musculoskeletal problems. She has failed conservative treatment. She would like to proceed with surgical intervention. I think the most predictable thing for her right now would be hip replacement surgery. This may help her knee some, it may help her back some. It is not going to relieve all of her symptoms. She is fully aware of that and would like to proceed. PLAN: We are going to proceed with left total hip replacement. The risks and benefits of this procedure were explained to the patient including, but not limited to DVT, PE, , infection, neurological injury, vascular injury, bleeding problem, pain, limited range of motion, stiffness, failure to relieve her symptoms, incomplete relief of symptoms, need for further surgery in future, fracture, leg length inequality, nerve palsy, dislocation, incomplete relief of symptoms, and blood transfusion. The patient understands and desires to proceed. Informed consent was obtained. She is fully aware this is not going to fix all of her problems, but hopefully will make a significant improvement in her quality of life. As far as discharge plans, she is planning to be discharged to home using home health program.
[2019-10-29] MEDS ORDERED: FAMOTIDINE 20 MG TAB PO SCH (06:00)
[2019-10-29] MEDS ORDERED: TRANEXAMIC ACID 1,000 MG **IV Pre-op IV SCH (06:00)
[2019-10-29] MEDS ORDERED: ACETAMINOPHEN 500 MG TAB PO SCH (06:00)
[2019-10-29] MEDS ORDERED: SCOPOLAMINE 1.5 MG TDSY TD SCH (06:00)
[2019-10-29] MEDS ORDERED: LR 60ML/HR IV SCH (06:00)
[2019-10-29] MEDS ORDERED: METOCLOPRAMIDE HCL 10 MG TABLET PO SCH (06:00)
[2019-10-29] MEDS ORDERED: CEFAZOLIN 2000MG 2,000 MG/15 ML SYR IV SCH ×2 (06:00→09:55)
[2019-10-29] MEDS ORDERED: GABAPENTIN 600 MG DOSE PO SCH (06:00)
[2019-10-29] MEDS ORDERED: LR 500ML BOLUS, THEN 15ML/HR IV SCH (06:00)
[2019-10-29] MEDS ORDERED: BUPIVACAINE 0.5 % 5 MG/1 ML PF 10ML VIAL ONE (06:23)
[2019-10-29] MEDS ORDERED: PROPOFOL IV EMULSION 10 MG/ML 20 ML VIAL IV ONE ×2 (06:26→07:44)
[2019-10-29] MEDS ORDERED: MoRPHine SULFATE PF 1 MG/ML 10 ML AMP/VIAL ONE (06:27)
[2019-10-29] MEDS ORDERED: MIDAZOLAM HCL 1 MG/ML 2ML VIAL ONE (06:27)
[2019-10-29] MEDS ORDERED: fentaNYL citrate 100 MCG/2 ML VIAL ONE (06:27)
[2019-10-29] MEDS ORDERED: BACITRACIN INJ 50,000 UNIT VIAL ONE (06:36)
[2019-10-29] MEDS ORDERED: BUPIVACAINE/EPINEPHRINE 0.5% MPF 1:200,000 10 ML VIAL ONE (06:37)
[2019-10-29] MEDS ORDERED: CEFAZOLIN 2,000 MG/15 ML IV PUSH IV ONE (06:41)
--- NOTE | 2019-10-29 06:52 | History & Physical Bridge Note ---
Date of Service October 29, 2019 History & Physical Bridge Note I have examined the patient, reviewed the History & Physical and in the interval since the performance of the History & Physical I have noted the following changes of clinical significance: no changes noted
[2019-10-29] MEDS ORDERED: HYDROmorphone INJ 0.5 MG/0.5 ML SYR IV PRN ×2 (06:56→09:55)
[2019-10-29] MEDS ORDERED: MoRPHine SULFATE 2 MG/ML CARP IV PRN (06:56)
[2019-10-29] MEDS ORDERED: PROMETHAZINE HCL 25 MG in SODIUM CHLORIDE 0.9% 50 ML IV PRN (06:56)
[2019-10-29] MEDS ORDERED: LACTATED RINGER'S 500 ML IV PRN (06:56)
[2019-10-29] MEDS ORDERED: NALOXONE HCL 0.08 MG in SYRINGE 1.8 ML IV PRN (06:56)
[2019-10-29] MEDS ORDERED: NALOXONE HCL 0.4 MG/1 ML VIAL/CARP IV PRN ×2 (06:56→09:55)
[2019-10-29] MEDS ORDERED: NALOXONE HCL 1 MG in SODIUM CHLORIDE 0.9% 1000ML 1,000 ML IV PRN (06:56)
[2019-10-29] MEDS ORDERED: ONDANSETRON INJ 2 MG/ML 2 ML VIAL IV PRN ×2 (06:56→09:55)
[2019-10-29] MEDS ORDERED: DiphenhydrAMINE HCL 50 MG/ML VIAL IV PRN (06:56)
[2019-10-29] MEDS ORDERED: ePHEDrine sulfate 50 MG/ML AMP IV PRN (06:56)
[2019-10-29] MEDS ORDERED: NALBUPHINE HCL INJ 10 MG/ML AMP IV PRN (06:56)
[2019-10-29] MEDS ORDERED: MoRPHine SULFATE PF 1 MG/ML 10 ML AMP/VIAL INT SPINAL ONE (06:56)
[2019-10-29] MEDS ORDERED: DC INTRASPINAL MORPHINE SCH (07:00)
[2019-10-29] MEDS ORDERED: NO NARCOTICS OR SEDATIVES SCH (07:00)
[2019-10-29] MEDS ORDERED: SODIUM CHLORIDE 0.9% 1000ML 1,000 ML IV SCH (07:00)
[2019-10-29] MEDS ORDERED: ONDANSETRON INJ 2 MG/ML 2 ML VIAL ONE (07:15)
[2019-10-29] MEDS ORDERED: ePHEDrine sulfate 50 MG/ML AMP ONE (07:15)
[2019-10-29] MEDS ORDERED: PHENYLEPHRINE HCL 10 MG/ML VIAL ONE (07:15)
--- NOTE | 2019-10-29 08:44 | Post Operative Brief Note ---
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 Left Femoral Head Drains Wilder Catheter (A 16 Mongolian wilder catheter was inserted by ALLISON Olvera, without difficulty, clear yellow urine obtained, output to be monitored by Anesthesia.) Anesthesia Type Spinal MAC Complications none Disposition Accompanied Patient To Recovery: Yes Disposition: Recovery Room
--- NOTE | 2019-10-29 09:12 | XRay Report ---
XR hip 1V LT w pelvis CLINICAL HISTORY: Postoperative evaluation. COMPARISON: Pelvis radiograph July 22, 2019. FINDINGS: Alignment of the total left hip arthroplasty is anatomic. There is no periprosthetic fract ure or unexpected radiopaque foreign body. There are 2 acetabular screws. A right hip arthroplasty is noted. IMPRESSION: Expected findings following total left hip arthroplasty. ACT 112: Negative or not required by law. Electronically signed by: Osmar Celis M.D. 10/29/2019 9:11 AM
--- NOTE | 2019-10-29 09:17 | Anesthesiology Progress Note ---
Date of Service October 29, 2019 Anesthesia Post Procedure Vital Signs Vital Signs: Temp Pulse Pulse Resp BP Pulse Ox 10/29/19 09:10 36.5 C 82 15 121/74 96 10/29/19 09:00 36.5 C 82 19 124/73 98 10/29/19 08:50 84 17 124/71 99 10/29/19 08:40 36.3 C L 88 13 131/64 99 10/29/19 05:45 36.4 C L 80 18 165/89 H 100 Transfer of Care Handoff Completed per policy Notes Mental Status: alert / awake / arousable and participated in evaluation Patient Amnestic to Procedure: Yes Nausea / Vomiting: adequately controlled Pain: adequately controlled Airway Patency, RR, SpO2: stable & adequate BP & HR: stable & adequate Hydration State: stable & adequate Neuraxial Anesthesia: was administered and sensory block is resolving Anesthetic Complications: no major complications apparent and Pt Satisfied with anesthetic care
[2019-10-29] MEDS ORDERED: ALUMINUM/MAGNESIUM SUSP 30 ML UDC PO PRN (09:55)
[2019-10-29] MEDS ORDERED: MAGNESIUM HYDROXIDE SUSP 30 ML UDC PO PRN (09:55)
[2019-10-29] MEDS ORDERED: METOCLOPRAMIDE HCL INJ 5 MG/ML 2 ML VIAL IV PRN (09:55)
[2019-10-29] MEDS ORDERED: NON-FORMULARY MEDICATION (Diphenhydramine-Acetaminophen [Tylenol Pm Extra Strength] 1 TAB) PO PRN (09:55)
[2019-10-29] MEDS ORDERED: bisacodyL 10 MG SUPP PR PRN (09:55)
[2019-10-29] MEDS ORDERED: TRAMADOL HCL 50 MG TABLET PO PRN (09:55)
[2019-10-29] MEDS: MULTIVITAMIN TAB PO SCH (11:11)
[2019-10-29] MEDS: DOCUSATE SODIUM 100 MG CAP PO SCH ×2 (11:11→20:47)
[2019-10-29] MEDS: ASPIRIN 81 MG ECTAB PO SCH ×2 (11:11→20:46)
[2019-10-29] MEDS: CHOLECALCIFEROL 1,000 UNITS 25 MCG TAB PO SCH (11:12)
[2019-10-29] MEDS: CYANOCOBALAMIN 500 MCG TABLET (VITAMIN B-12) PO SCH (11:12)
[2019-10-29] MEDS: KETOROLAC 30 MG/ML VIAL IV SCH ×3 (11:54→21:57)
[2019-10-29] MEDS: SODIUM CHLORIDE 0.9% 1000ML 1,000 ML IV SCH ×2 (13:03→23:06)
[2019-10-29] MEDS: ACETAMINOPHEN 500 MG TAB PO SCH ×2 (13:28→21:57)
[2019-10-29] MEDS: CEFAZOLIN 2000MG 2,000 MG/15 ML SYR IV SCH ×2 (14:11→21:57)
[2019-10-29] MEDS ORDERED: TRANEXAMIC ACID / 0.7% NACL 1,000 MG/100 ML BAG IV SCH (14:48)
[2019-10-29] MEDS: CHECK SCOPOLAMINE PATCH PLACEMENT SCH (15:35)
[2019-10-29] MEDS: ASCORBIC ACID 500 MG TAB PO SCH (17:51)
[2019-10-29] MEDS: FERROUS GLUCONATE 324 MG TAB PO SCH (17:51)
--- NOTE | 2019-10-29 18:49 | Operative Report ---
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 She had grade 4 [id number] disease of the femoral head and acetabulum. Moderate sized joint effusion. She did have a very large and thick soft tissue envelope. She had retroversion of her acetabulum with a posterior wall acetabular deficiency. Fluids 800 cc Specimens Left femoral head sent for pathology. Drains None. Anesthesia Type Spinal MAC Complications none Disposition Accompanied Patient To Recovery: Yes Disposition: Recovery Room Indications Patient is a 49-year-old female is had a long history of multiple joint problems. She underwent a right hip replacement 3 years ago. Over the past 2 years she is developed increased pain discomfort in her left hip. She is failed conservative treatment. X-rays show progressive left hip arthritis and the patient elected proceed with surgical treatment. Description of Procedure Operative implants consisted of: 1. Biomet size 52 mm G7 acetabular shell. 2. 6.5 cancellus acetabular screws 1 of 35 mm length and 1 to 20 mm length. 3. Marianna hole eliminator. 4. Highly cross-linked polyethylene liner with a 52 mm outer diameter and 32 mm inner diameter. 5. Worthington Corail size 10 KLA femoral stem. 6. +1/32 mm ceramic articular ball. Patient was taken to the operating room identified and placed on the operating room table in supine position protectors were properly padded. IV antibiotics were provided by anesthesia team. A spinal anesthetic had been implemented holding area. Titus catheter was placed in sterile fashion with the patient then placed in the right lateral decubitus position. Axillary roll was placed. Stulberg hip positioner was used for positioning. The left hip and leg were the n prepped and draped in the usual sterile fashion. A posterior lateral approach to the left hip was then performed through a curvilinear incision centered over the greater trochanter. Sharp dissection was cut through subcutaneous tissue down to level the IT band gluteal fascia. The IT band gluteal fascia were then incised longitudinally in line with the skin incision. The underlying greater bursa was excised. The piriformis and external rotators were then tagged and taken off the posterior aspect of hip joint capsule. Great care was taken throughout the procedure to protect the sciatic nerve at all times. Posterior capsulotomy was then performed leaving a large flap for later repair. Hip was internally rotated and dislocated. Femoral neck osteotomy cut was made with Final Cut a centimeter above the lesser trochanter. Femoral head was removed and sent for pathology. The femur was retracted anteriorly. Attention drawn the acetabulum. The acetabular labrum was excised. The pulmonary fat was excised. Sequential reaming the acetabular was then performed begin with a size 43 and progressing up to 51. She did have a very retroverted acetabulum and there was some posterior wall deficiency. A 52 mm Biomet G7 acetabular shell was then placed in about 40 degrees lateral opening and 20 degrees of anteversion. It was fixed with two 6.5 cancellus acetabular screws. The anterior osteophyte was removed. The trial liner was placed. Attention drawn the femur.. The proximal femur was entered with a cookie-cutter followed by canal finder. I then broached begin the size 8 and progressing up to 10. Got excellent fitted a 10. Calcar reamer was used smooth and off the calcar. Then trialed the hip and the +1 articular ball seem to re-create soft tissue tension appropriately and leg lengths appropriately. It was fully stable in full extension and external rotation and flexion to 90 degrees and internal rotation over [address] I like to place these implants. All trial implants were removed. An apex hole eliminator was placed. A highly cross-linked polyethylene liner was placed. A M-DISCuy FAMOCOA Corail femoral stem was impacted in position. This is a size 10. A +1/32 mm ceramic articular ball was placed. The hip was once again located and found to be stable. Attention drawn toward closing. The wound was irrigated with copious amounts of pulsatile lavage solution. I did inject locally with 60 cc of half percent Marcaine with epinephrine. The posterior capsule and external rotators were then repaired through drill holes in the posterior trochanter with #2 Tycron suture. The IT band gluteal fascia were then closed with #1 PDS suture running fashion with subcutaneous tissues then closed with 2 layers with a deep layer #2 Vicryl suture in a buried interrupted fashion followed by the new more superficial layer closed with 2-0 Dexon suture in a buried interrupted fashion. Skin was closed skin betty. Leg was then cleaned dried a sterile dressing composed of Xeroform, 4 x 4's, sterile ABD pad and foam tape was applied. Patient then transferred to the recovery room in stable condition. Patient tolerated procedure well and there were no complications. I attest to the content of the Intraoperative Record and any orders documented therein. Any exceptions are noted below.
[2019-10-29] MEDS: SENNA 8.6 MG TAB PO SCH (20:47)
[2019-10-30] MEDS: CHECK SCOPOLAMINE PATCH PLACEMENT SCH (00:15)
[2019-10-30] MEDS ORDERED: NALOXONE HCL 0.4 MG/1 ML VIAL/CARP IV PRN (00:57)
[2019-10-30] MEDS: ACETAMINOPHEN 500 MG TAB PO SCH ×3 (05:42→20:23)
[2019-10-30] MEDS: LEVOTHYROXINE SODIUM 88 MCG TABLET PO SCH (05:43)
[2019-10-30] MEDS: KETOROLAC 30 MG/ML VIAL IV SCH ×4 (05:44→20:24)
[2019-10-30 05:53] LABS: Basophils # (auto) 0.03 K/uL (0-0.2); Basophils % (auto) 0.4 %; Eosinophils # (auto) 0.07 K/uL (0-0.5); Eosinophils % (auto) 0.9 %; Hematocrit (blood only) 33.4 % (37-47); Hemoglobin 11.2 g/dL (12.0-16.0); Immature Granulocytes # (auto) 0.01 K/uL (0.00-0.02); Immature Granulocytes % (auto) 0.1 %; Lymphocytes # (auto) 0.71 K/uL (1.2-3.4); Lymphocytes % (auto) 9.5 %; Mean Corpuscular Hemoglobin 29.9 pg (25-34); Mean Corpuscular Hgb Conc 33.5 g/dL (32-36); Mean Corpuscular Volume 89.1 fL (80-100); Mean Platelet Volume 8.9 fL (7.4-10.4); Monocytes # (auto) 1.07 K/uL (0.11-0.59); Monocytes % (auto) 14.3 %; Neutrophils # (auto) 5.59 K/uL (1.4-6.5); Neutrophils % (auto) 74.8 %; Platelet Count 233 K/uL (130-400); RDW Coefficient of Variation 12.9 % (11.5-14.5); RDW Standard Deviation 42.1 fL (36.4-46.3); Red Blood Count 3.75 M/uL (4.2-5.4); White Blood Count 7.48 K/uL (4.8-10.8)
[2019-10-30] MEDS: SODIUM CHLORIDE 0.9% 1000ML 1,000 ML IV SCH (06:06)
[2019-10-30 06:20] LABS: BUN Creatinine Ratio 16.3 (10-20); Calcium 8.1 mg/dl (8.5-10.1); Creatinine Clr Calc Pharmacy 117.1 ml/min; Est GFR (African American) 123.7; Est GFR (Non-African American) 106.7; Potassium 3.8 mmol/L (3.5-5.1)
--- NOTE | 2019-10-30 07:44 | Anesthesiology Progress Note ---
Date of Service October 30, 2019 Anesthesia Post Procedure Vital Signs Vital Signs: Temp Pulse Pulse Resp BP BP Pulse Ox 10/30/19 03:22 36.6 C 65 16 111/68 95 10/30/19 00:55 16 96 10/29/19 23:45 16 96 10/29/19 23:03 36.6 C 56 L 16 98/63 L 96 10/29/19 21:56 14 95 10/29/19 20:45 14 98 10/29/19 19:43 14 100 10/29/19 19:03 37.2 C 73 16 135/71 99 10/29/19 19:00 15 98 10/29/19 17:51 15 100 10/29/19 16:46 14 97 10/29/19 15:35 36.4 C L 71 15 126/79 99 10/29/19 14:41 16 93 10/29/19 13:45 18 99 10/29/19 12:45 36.5 C 73 18 111/64 99 10/29/19 11:45 36.4 C L 70 14 102/61 96 10/29/19 10:42 36.3 C L 63 16 136/83 96 10/29/19 10:18 62 16 129/82 93 10/29/19 09:45 36.3 C L 65 16 105/74 99 10/29/19 09:20 36.5 C 83 14 126/77 96 10/29/19 09:10 36.5 C 82 15 121/74 96 10/29/19 09:00 36.5 C 82 19 124/73 98 10/29/19 08:50 84 17 124/71 99 10/29/19 08:40 36.3 C L 88 13 131/64 99 Notes Mental Status: alert / awake / arousable Patient Amnestic to Procedure: Yes Nausea / Vomiting: adequately controlled Pain: adequately controlled Airway Patency, RR, SpO2: stable & adequate BP & HR: stable & adequate Hydration State: stable & adequate Neuraxial Anesthesia: was administered and sensory block resolved Anesthetic Complications: no major complications apparent
[2019-10-30] MEDS ORDERED: dexAMETHasone 4 MG TAB PO SCH (08:00)
[2019-10-30] MEDS: CYANOCOBALAMIN 500 MCG TABLET (VITAMIN B-12) PO SCH (08:38)
[2019-10-30] MEDS: MULTIVITAMIN TAB PO SCH (08:38)
[2019-10-30] MEDS: DOCUSATE SODIUM 100 MG CAP PO SCH ×2 (08:38→20:23)
[2019-10-30] MEDS: ASPIRIN 81 MG ECTAB PO SCH ×2 (08:39→20:23)
[2019-10-30] MEDS: FERROUS GLUCONATE 324 MG TAB PO SCH ×2 (08:39→17:57)
[2019-10-30] MEDS: CHOLECALCIFEROL 1,000 UNITS 25 MCG TAB PO SCH (08:39)
[2019-10-30] MEDS: ASCORBIC ACID 500 MG TAB PO SCH ×2 (08:39→17:57)
--- NOTE | 2019-10-30 11:32 | Progress Note ---
DATE: 10/30/2019 SUBJECTIVE: 49-year-old white female postop day 1 from a left hip replacement. She is doing pretty well. She says she does not have any pain, just soreness. No chest pain or shortness of breath. Not feeling dizzy or lightheaded. She has been up and walking some without too much difficulty. OBJECTIVE: VITAL SIGNS: Temperature 36.7. Vital signs stable. GENERAL: Pleasant, middle-aged female. She is sitting up in her bedside chair eating breakfast. She looks pretty comfortable. LUNGS: Clear to auscultation. HEART: Has regular rate and rhythm. ABDOMEN: Soft, nontender, nondistended. EXTREMITIES: Grossly neurovascularly intact except as follows: Examination of the left hip and leg reveals the dressing to be clean, dry and intact. Thigh is soft and supple. No significant drainage. Hip is located. Leg lengths are equal. She can dorsiflex and plantarflex her foot appropriately. She is neurologically intact. LABORATORY DATA: Hemoglobin 11.2. Hematocrit 33.4. Electrolytes are stable. Creatinine is a little bit low at 0.58. ASSESSMENT: 49-year-old white female postop day 1 from a left hip replacement, doing well. Pain is controlled. Hip is located. She is neurologically intact. PLAN: 1. DVT prophylaxis including thigh-high TEDs, SCDs, and aspirin twice a day. 2. PT/OT. Weight bear as tolerated. Left total knee protocol. 3. Pain control, doing pretty well with current pain regimen. 4. Disposition: We are planning to discharge to home with some home health once adequately recovered and medically stable.
[2019-10-30] MEDS: SENNA 8.6 MG TAB PO SCH (20:23)
[2019-10-31] MEDS: ACETAMINOPHEN 500 MG TAB PO SCH (05:37)
[2019-10-31] MEDS: KETOROLAC 30 MG/ML VIAL IV SCH (05:37)
[2019-10-31] MEDS: LEVOTHYROXINE SODIUM 88 MCG TABLET PO SCH (05:37)
--- NOTE | 2019-10-31 07:26 | Orthopedic Progress Note ---
Date of Service October 31, 2019 Assessment & Plan (1) History of total left hip arthroplasty: She was seen by Dr. Domingo. She is doing well. Will plan to discharge home today with home health. Continue dvt prophylaxis. Continue current pain management with tramadol. PT/OT WBAT and total hip precautions. F/u approx 2 weeks post op . Subjective POD #2 from Left GENE. Doing well. Not having much pain. No new complaints at this time. Physical Exam Physical Exam: She is alert and oriented. NAD. She is ambulating in the hallway at this time. Results & Data ([facility]) Vital Signs (Past 12 Hours) Vital Signs Temp Pulse Pulse Resp BP BP Pulse Ox 10/31/19 07:16 36.9 C 78 18 142/94 H 100 10/30/19 23:00 36.8 C 80 16 143/88 H 100 PG Care Time/CCT Total # of Minutes Spent Total Time Spent with Patient: Total time spent is greater than 50% in coordination of care (as documented) at patient's floor/unit and/or counseling patient: Coding Level of Care Code None Diagnoses History of total left hip arthroplasty Z96.642
[2019-10-31] MEDS: DOCUSATE SODIUM 100 MG CAP PO SCH (07:35)
[2019-10-31] MEDS: MULTIVITAMIN TAB PO SCH (07:35)
[2019-10-31] MEDS: FERROUS GLUCONATE 324 MG TAB PO SCH (07:35)
[2019-10-31] MEDS: ASPIRIN 81 MG ECTAB PO SCH (07:36)
[2019-10-31] MEDS: CYANOCOBALAMIN 500 MCG TABLET (VITAMIN B-12) PO SCH (07:36)
[2019-10-31] MEDS: CHOLECALCIFEROL 1,000 UNITS 25 MCG TAB PO SCH (07:36)
[2019-10-31] MEDS: ASCORBIC ACID 500 MG TAB PO SCH (07:36)
--- NOTE | 2019-11-01 14:25 | Discharge Summary ---
ADMITTING PHYSICIAN AND SURGEON: Dr. Chris Domingo. ADMITTING DIAGNOSIS: Left hip degenerative joint disease. SURGERY PERFORMED: Left total hip arthroplasty. SECONDARY DIAGNOSES: Hypothyroidism, chronic back pain, sciatica, kidney stones, obesity. CONSULTS: None obtained. HISTORY AND PHYSICAL EXAMINATION: Well documented in the patient's chart. HOSPITAL COURSE: The patient was admitted on 10/29/2019 underwent a total hip arthroplasty, tolerated the procedure well. There were no complications. She was transferred to the PACU postoperatively and later to the orthopedic floor for further care. She was given Ancef for antibiotic prophylaxis, FARIDA stockings, SCDs and aspirin for DVT prophylaxis. Hemoglobin, hematocrit and vital signs were monitored during her hospital stay and remained stable. She did not require any blood transfusions. There were no complications. By postoperative day 2 she was tolerating a regular diet, pain was controlled with oral pain medicine. She was participating in physical therapy. Postop day 2 she was discharged home, set up with home health services, given printed discharge instructions as well as new prescriptions for extra strength Tylenol, aspirin and tramadol. Continue her home medicines with the exception of her home dose of Tylenol and tramadol, which was changed. Continue physical therapy, weightbearing as tolerated, FARIDA stockings. Follow up approximately 2 weeks postop or sooner if there are any problems or concerns.
== END 2019-10-31 10:18 | disposition home health service (06) ==
LOC: ASU 04:58 → 3E 04:58